=== PATIENT | male | born 1980 | race Caucasian/White ===

== ENCOUNTER 2017-04-18 05:56 | Day surgery (SDC) | payer BC ==
[~2017-04-18 05:56] MED LIST: Lactated Ringers 1,000 ML IV SCH; Lidocaine 1%/Sod Bicarbonate in NS 8.4% 1 ML Syringe IDERM PRN; Sodium Chloride 0.9% 10 ML Syringe FLUSH PRN
[2017-04-18] MEDS ORDERED: Ropivacaine 0.5% 5 MG/ML 30 ML SDV ONE (06:02)
[2017-04-18] MEDS ORDERED: EPINEPHrine 1 MG/ML SDV ONE (06:02)
[2017-04-18] MEDS ORDERED: Lidocaine 1% 2 ML ONE (06:39)
[2017-04-18] MEDS ORDERED: Midazolam 1 MG/ML 2 ML SDV ONE ×2 (06:40→06:44)
[2017-04-18] MEDS ORDERED: fentaNYL 100 MCG/2 ML SDV ONE ×2 (06:40→06:44)
[2017-04-18] MEDS ORDERED: Bupivacaine 0.25% 10 ML SDV ONE (06:42)
[2017-04-18] MEDS ORDERED: Rocuronium 50 MG/5 ML Vial ONE (06:44)
[2017-04-18] MEDS ORDERED: Ondansetron 4 MG/2 ML SDV ONE (06:44)
[2017-04-18] MEDS ORDERED: Propofol 200 MG/20 ML SDV ONE (06:44)
[2017-04-18] MEDS ORDERED: ceFAZolin 1 GM Vial ONE (06:45)
[2017-04-18] MEDS ORDERED: Lidocaine 1% 4 ML ONE (06:45)
--- NOTE | 2017-04-18 07:05 | PCM.PREANE ---
Preanesthetic Assessment - Procedure Proposed Procedure: Right SVA with RCR, SAD - Anesthesia/Transfusion/Family Hx Anesthesia History: Prior Anesthesia Without Reaction Family History of Anesthesia Reaction: No Transfusion History: No Prior Transfusion(s) Intubation History: Unknown - Review of Systems General: No Symptoms Pulmonary: No Symptoms Cardiovascular: No Symptoms Gastrointestinal: No Symptoms Neurological: No Symptoms Other: Reports: None - Physical Assessment NPO Status Date: 04/17/17 NPO Status Time: 22:00 O2 Sat by Pulse Oximetry: 96 Respiratory Rate: 20 Vital Signs: Last Vital Signs Temp 36.7 C 04/18/17 06:10 Pulse 73 04/18/17 06:10 Resp 20 04/18/17 06:40 BP 139/91 H 04/18/17 06:40 Pulse Ox 96 04/18/17 06:40 Height: 1.88 m Weight: 96.162 kg ASA Class: 2 Mental Status: Alert & Oriented x3 Airway Class: Mallampati = 3 Dentition: Reports: Normal Dentition Thyro-Mental Finger Breadths: 3 Mouth Opening Finger Breadths: 3 ROM/Head Extension: Full Lungs: Clear to Auscultation, Normal Respiratory Effort Cardiovascular: Regular Rate, Regular Rhythm - Lab Values: Laboratory Last Values MRSA (PCR) Negative 04/13/17 13:10 - Allergies Allergies/Adverse Reactions: Allergies Allergy/AdvReac Type Severity Reaction Status Date / Time No Known Allergies Allergy Verified 04/17/17 14:51 - Blood Blood Available: No Product(s) Available: None - Anesthesia Plan Pre-Op Medication Ordered: None - Acknowledgements Anesthesia Type Planned: General Anesthesia (OETT), Regional Block (right interscalene nerve blcok ) Pt an Appropriate Candidate for the Planned Anesthesia: Yes Alternatives and Risks of Anesthesia Discussed w Pt/Guardian: Yes Pt/Guardian Understands and Agrees with Anesthesia Plan: Yes PreAnesthesia Questionnaire - Past Health History Medical/Surgical History: Denies Medical/Surgical History Genitourinary History: Reports: Renal Calculus - SUBSTANCE USE Smoking Status *Q: Current Some Day Smoker Second Hand Smoke Exposure: No Recreational Drug Use History: No - HOME MEDS Home Medications: Home Meds Acetaminophen/HYDROcodone [[place] 325-5 MG] 1 - 2 tab PO Q6H PRN #40 tablet 04/18 [Rx] Cyclobenzaprine [Flexeril] 10 mg PO Q8H PRN #40 tab 04/18/17 [Rx] - CURRENT (IN HOUSE) MEDS Current Meds: Current Medications Lactated Ringer's (Ringers, Lactated) 1,000 mls @ 125 mls/hr IV ASDIRECTED YAZMIN Last Admin: 04/18/17 06:20 Dose: 125 mls/hr Lidocaine/Sodium Bicarbonate (Buffered Lidocaine 1% In Ns 8.4%) 0.25 ml IDERM ONETIME PRN PRN Reason: Prior to IV Start Last Admin: 04/18/17 06:20 Dose: 0.25 ml Sodium Chloride (Saline Flush) 10 ml FLUSH ASDIRECTED PRN PRN Reason: Keep Vein Open Discontinued Medications Bupivacaine HCl (Sensorcaine-Mpf 0.25%) Confirm Administered Dose 10 ml .ROUTE .STK-MED ONE Stop: 04/18/17 06:43 Cefazolin Sodium (Ancef) Confirm Administered Dose 2 gm .ROUTE .STK-MED ONE Stop: 04/18/17 06:46 Epinephrine HCl (Adrenalin) Confirm Administered Dose 1 mg .ROUTE .STK-MED ONE Stop: 04/18/17 06:03 Fentanyl (Sublimaze) Confirm Administered Dose 100 mcg .ROUTE .STK-MED ONE Stop: 04/18/17 06:41 Fentanyl (Sublimaze) Confirm Administered Dose 100 mcg .ROUTE .STK-MED ONE Stop: 04/18/17 06:45 Lidocaine HCl (Xylocaine-Mpf 1%) Confirm Administered Dose 2 mls @ as directed .ROUTE .STK-MED ONE Stop: 04/18/17 06:40 Lidocaine HCl (Xylocaine-Mpf 1%) Confirm Administered Dose 4 mls @ as directed .ROUTE .STK-MED ONE Stop: 04/18/17 06:46 Midazolam HCl (Versed 1 Mg/Ml) Confirm Administered Dose 2 mg .ROUTE .STK-MED ONE Stop: 04/18/17 06:41 Midazolam HCl (Versed 1 Mg/Ml) Confirm Administered Dose 2 mg .ROUTE .STK-MED ONE Stop: 04/18/17 06:45 Ondansetron HCl (Zofran) Confirm Administered Dose 4 mg .ROUTE .STK-MED ONE Stop: 04/18/17 06:45 Propofol (Diprivan 20 Ml) Confirm Administered Dose 200 mg .ROUTE .STK-MED ONE Stop: 04/18/17 06:45 Rocuronium [place] (Zemuron) Confirm Administered Dose 50 mg .ROUTE .[employer] ONE Stop: 04/18/17 06:45 Ropivacaine (Naropin 0.5%) Confirm Administered Dose 30 ml .ROUTE .[employer] ONE Stop: 04/18/17 06:03
[2017-04-18] MEDS ORDERED: Lactated Ringers 1,000 ML ONE (07:49)
[2017-04-18] MEDS ORDERED: EPINEPHrine 1 MG/ML 30 ML MDV ONE (08:45)
[2017-04-18] MEDS ORDERED: fentaNYL 100 MCG/2 ML SDV IVPUSH PRN (08:46)
--- NOTE | 2017-04-18 08:47 | PCM.POSTAN ---
POST ANESTHESIA ASSESSMENT - MENTAL STATUS Mental Status: Alert, Oriented - VITAL SIGNS Pulse Rate: 88 SaO2: 94 Resp Rate: 14 Blood Pressure: 124/81 Temperature: 36.9 C - RESPIRATORY Respiratory Status: Respiratory Rate WNL, Airway Patent, O2 Saturation Stable, Supplemental Oxygen - CARDIOVASCULAR CV Status: Pulse Rate WNL, Blood Pressure Stable - GASTROINTESTINAL GI Status: No Symptoms - PAIN Pain Score: 0 - POST OP HYDRATION Hydration Status: Adequate & Stable - OBSERVATIONS Free Text/Narrative:: no anesthesia complications noted
--- NOTE | 2017-04-18 10:20 | PCM.SN ---
- Free Text/Narrative Note: Right interscalene nerve block note Date: 04/12/2017 Start: 639 Time Out: 640 Stop: 650 Surgical Procedure: Right shoulder video arthroscopy with RCR, TYALER Diagnosis: Right rotator cuff tear Current Procedure: Right interscalene block under US guidance for postoperative pain control Patient chart reviewed, risk/benefits discussed with patient, consent obtained. Patient positioned supine, monitors/alarms on, oxygen placed via nasal cannula at 2 LPM. IV sedation administered: Versed 2mg IV Fentanyl 100 mcg IV Right shoulder prepped with chloraprep x1. Sterile drapes placed with aseptic technique. Under US guidance, right subclavian artery visualized along with the brachial plexus. Plexus followed cephalad up to C6 cricoid level, and area localized with 2mls of 1% lidocaine. 22gauge 2 inch stimiplex needle inserted under US and guided to brachial plexus C5-C6 trunks with 0.44mV with stimulation of biceps noted. Stimulation abolished at 0.2mVs. 1ml of Normal Saline injected with loss of stimulation up to 0.7mA. Incremental injection of 5mls with negative aspiration prior to each injection of 0.5% ropivacaine with 1:200,000 epinephrine. Total volume=30mls. Refer to nurses notes for vital signs. Eugenio Ma CRNA
[2017-04-18 11:08] VITALS: BP 122/83
--- NOTE | 2017-04-26 22:35 | PCM.OPNOTE ---
- General Post-Op/Procedure Note Date of Surgery/Procedure: 04/18/17 Operative Procedure(s): right shoulder video arthroscopy with rotator cuff repair subacromial decopmression and extensive debridement Pre Op Diagnosis: right shoulder rotator cuff tear with impingement Post-Op Diagnosis: Same Anesthesia Technique: General ET Tube, Regional Block Primary Surgeon: Jacobo Garcia Anesthesia Provider: Eugenio Ma Ropewalk Rope Maker: Didi Aqunio EBL in mLs: 5 Complications: None Condition: Good
--- NOTE | 2017-04-27 18:15 | OR ---
DATE OF OPERATION: 04/18/2017 SURGEON: Jacobo Garcia MD OPERATION PERFORMED: Right shoulder video arthroscopy with rotator cuff repair, subacromial decompression, and extensive debridement. PREOPERATIVE DIAGNOSIS: Right shoulder rotator cuff tear with impingement. POSTOPERATIVE DIAGNOSIS: Right shoulder rotator cuff tear with impingement. ANESTHESIA: General endotracheal intubation with regional interscalene block. ANESTHESIA PROVIDER: Eugenio Ma. COLD TYPE ARTIST: Didi Aquino PA-C ESTIMATED BLOOD LOSS: 5 mL. COMPLICATIONS: None. CONDITION: Stable. DESCRIPTION OF PROCEDURE: The patient was identified in the preop holding area where proper site was marked and identified by the surgeon. The patient was taken back to the operating theater where, after adequate anesthesia, the patient was placed in the lazy left lateral decubitus position. A wedge was placed posteriorly. All bony prominences were well padded. The patient's right upper extremity was then sterilely prepped and draped in the usual sterile fashion. OR time-out was performed. The patient received 2 g of IV Ancef. At this time, 15 pounds of traction was applied to the right upper extremity. At this time, posterior incision was made. Scope and trocar were introduced to the glenohumeral joint. The patient then had an anterior portal created with the use of a spinal needle. Cursory examination showed the biceps tendon was intact. There were no signs of chondromalacia. There was noted to be a small high-grade partial-thickness tear to the anterior portion of the supraspinatus. The rest of the undersurface of the footprint was intact. The bare area showed no signs of defect. There were no loose or foreign bodies. The subscapularis tendon was intact. At this time, the scope was removed and placed in the subacromial space both with anterior and posterior portals. At this time, the patient was noted to have a large amount of bursa. At this time, using the 2 portals, a significant synovectomy and debridement was done with significant synovitis. An extensive debridement was done at this time. Once I was able to see, I was able to fashion a lateral portal, and at this time, the tear on the anterior portion of the supraspinatus was identified. A good bony bleeding bed was then created using a 4-0 full- radius resector. With the use of a spinal needle, a 4.75 mm Arthrex SwiveLock anchor was placed medially. Two limbs of FiberTape and two limbs of FiberWire were then passed through the supraspinatus. The 2 limbs of FiberWire were then tied, and all 4 limbs were then brought out laterally, and another tap was used out laterally for a 4.75 SwiveLock anchor. The suture limbs from the previous medial row were then placed, and tension was applied, and the other anchor was placed out laterally for a watertight double-row repair. At this time, the patient was noted to have a type 3 acromion. The undersurface of the acromion and CA ligament were released. An extensive debridement was done. At this time, an acromioplasty was done to the undersurface of the acromion back to a type 1 border that was smoothed with the posterior portion of the acromion. At this time, he was found to have adequate zoroastrianism of a type 1 acromion. Excess saline was then drained from the shoulder. A 3-0 nylon simple suture was used for closure of the skin. The patient was placed in a sterile soft dressing and a pillow sling and sent to the PACU in stable condition. MMODAL /[id number]
== END 2017-04-18 11:00 | disposition home or self-care (01) ==
LOC: JD.SDS 05:56
PROVIDERS: ATTEND Orthopaedic Surgery
DX: M75.101 Unspecified rotator cuff tear or rupture of right shoulder, not specified as traumatic (principal); M25.811 Other specified joint disorders, right shoulder; F17.210 Nicotine dependence, cigarettes, uncomplicated
CPT/HCPCS: 29826; 29827; 64415; 87641; J0171; J0690; J2250; J2405; J2795; J3010; J7120; 01610; J2704

== ENCOUNTER 2019-09-18 21:04 | Emergency (ER) | payer OTHER, BC ==
[2019-09-18 21:18] VITALS: BP 130/88; PULSE 97
[2019-09-18] MEDS ORDERED: predniSONE 20 MG Tab PO ONE (21:25)
[2019-09-18] MEDS ORDERED: HYDROmorphone 1 MG/ML Syringe IM ONE (21:27)
[2019-09-18] MEDS ORDERED: Promethazine 25 MG/ML SDV IM ONE (21:28)
--- NOTE | 2019-09-18 21:30 | EDM.PDOC ---
ED HPI GENERAL MEDICAL PROBLEM - General Chief Complaint: Back Pain or Injury Stated Complaint: BACK PAIN Time Seen by Provider: 09/18/19 21:25 Source of Information: Reports: Patient History Limitations: Reports: No Limitations - History of Present Illness INITIAL COMMENTS - FREE TEXT/NARRATIVE: 38-year-old male presents to the ED with acute low back strain. He states he was reading on an object that was buried with in the ground and he developed sudden onset of severe low back pain primarily across his lower back that put him to the ground. This occurred about 1300 hrs. today. Since that time he has taken 400 mg of Motrin with no relief. He did see the chiropractor who did a minor adjustments of his lower back without any relief. He has not had a history of any low back problems. At present he is walking extremely slowly and found it very difficult to get in the vehicle to drive to the hospital. Current job involves some bending over but very little lifting pushing or pulling. He denies any pain radiating down into the buttocks or legs. Denies any trouble with bowel or bladder function. Onset: Today, Sudden Onset Date: 09/18/19 Onset Time: 13:00 Duration: Hour(s):, Getting Worse Location: Reports: Back (Diffuse low back pain perhaps worse on the right side as compared to the left.) Quality: Reports: Ache, Sharp (Pain is sharp and stabbing with certain movements.), Stabbing Severity: Severe (8 out of 10) Improves with: Reports: Rest Worsens with: Reports: Other (Movement) Context: Reports: Activity (Was pulling on an object that is buried within the ground when he developed sudden onset of severe low back pain that put him to the ground.). 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 (Under milligrams of Motrin.) Lower Back Pain Score (Numeric/FACES): 10 - Related Data Allergies Allergy/AdvReac Type Severity Reaction Status Date / Time No Known Allergies Allergy Verified 09/18/19 21:18 Home Meds: Home Meds Diclofenac Sodium [Voltaren] 75 mg PO BIDMEALS #16 tab.cr 09/18/19 [Rx] predniSONE [Prednisone] 20 mg PO ASDIRECTED #15 tablet 09/18/19 [Rx] Past Medical History - Past Health History Medical/Surgical History: Denies Medical/Surgical History Genitourinary History: Reports: Renal Calculus Social & Family History - Family History Family Medical History: Noncontributory Cardiac: Reports: [place] - Tobacco Use Smoking Status *Q: Current Every Day Smoker Years of Tobacco use: 10 Packs/Tins Daily: 0.5 - Caffeine Use Caffeine Use: Reports: Soda - Recreational Drug Use Recreational Drug Use: No - Living Situation & Occupation Living situation: Reports: Single, with Family Occupation: Employed ED ROS GENERAL - Review of Systems Review Of Systems: See Below Constitutional: Reports: Decreased Appetite. Denies: Fever, Chills, Malaise, Weight Loss HEENT: Reports: No Symptoms Respiratory: Reports: No Symptoms Cardiovascular: Reports: No Symptoms Endocrine: Reports: No Symptoms GI/Abdominal: Reports: No Symptoms : Reports: No Symptoms Musculoskeletal: Reports: Back Pain Skin: Reports: No Symptoms (History of present illness) Neurological: Reports: No Symptoms Psychiatric: Reports: No Symptoms Hematologic/Lymphatic: Reports: No Symptoms ED EXAM,LOWER BACK PAIN/INJURY - Physical Exam Exam: See Below Exam Limited By: No Limitations General Appearance: Alert, WD/WN, Moderate Distress, Other (Get off the gurney on his own volition. Temperature is 37.2 heart rate 97 and sinus respiratory of 18 with sats of 97% on room air BP 130/88.) Eye Exam: Bilateral Eye: Normal Inspection, PERRL Back Exam: Muscle Spasm (And has significant paraspinal muscle spasm on the right side from thoracic 6 to lumbar 5 vertebra.), Vertebral Tenderness (Point of maximal tenderness is at the L3-L4 facet joint on the right side.), Other ( There is no muscle spasm on the left side.) Extremities: Normal Inspection, Normal Range of Motion, Non-Tender, No Pedal Edema ( Pain on either SI joint on palpation.) Neurological: Alert, Normal Mood/Affect, Normal Dorsiflexion, CN II-XII Intact, Normal Plantar Flexion. No: Normal Gait (Walking very gingerly slightly bent over.) Psychiatric: Normal Affect, Normal Mood Skin Exam: Warm, Dry, Intact, Normal Color, No Rash Course - Vital Signs Last Recorded V/S: Last Vital Signs Temp 37.2 C 09/18/19 21:14 Pulse 97 09/18/19 21:14 Resp 18 09/18/19 21:14 BP 130/88 09/18/19 21:14 Pulse Ox 97 09/18/19 21:14 - Radiology Interpretation Free Text/Narrative:: 38-year-old male presents the ED with acute low back strain. This occurred while he was reading on an object that was buried within the ground. He felt sudden onset of severe pain in his lower back that dropped into his knees. Since that time the pain is gradually increased across his lower back but not down his legs or buttocks. Point of maximal tenderness appears to be the L3-L4 facet joint on the right side. Plan IM injection of Dilaudid 1 mg with Phenergan 25 mg IM for acute pain relief. This will provide some degree of sedation as well. I will place him on Voltaren 75 mg twice daily for the next 8 days to relieve pain and inflammation. Prednisone 20 mg twice daily morning and supper for 5 days then once in the morning only for another 5 days to relieve inflammation. Pain medication will be [place] 2 tablets every 3-4 hours as necessary for pain relief. Departure - Departure Time of Disposition: 21:35 Disposition: Home, Self-Care 01 Condition: Fair Clinical Impression: Lumbar spine strain Qualifiers: Encounter type: initial encounter Qualified Code(s): S39.012A - Strain of muscle, fascia and tendon of lower back, initial encounter - Discharge Information *PRESCRIPTION DRUG MONITORING PROGRAM REVIEWED*: Not Applicable *COPY OF PRESCRIPTION DRUG MONITORING REPORT IN PATIENT LEANNE: Not Applicable Prescriptions: predniSONE [Prednisone] 20 mg PO ASDIRECTED #15 tablet Diclofenac Sodium [Voltaren] 75 mg PO BIDMEALS #16 tab.cr Instructions: Low Back Sprain or Strain Rehab-SportsMed Referrals: PCP,None [Primary Care Provider] - Forms: ED Department Discharge, ED Return to Work/School Form Additional Instructions: Evaluation in the emergency room today in regards to acute low back strain. Examination reveals marked paraspinal muscle spasm on the right side from mid back all the way down to Roy's tailbone. Point of maximal tenderness is over the lumbar 3 lumbar 4 facet joint in your lower back. Think of this as a sprained ankle with fluid within the joint pushing it apart causing the muscle to go into spasm over top to ask his mother natures splint. On average it will take about 7 to 10 days for your back pain to settle down completely. Activity as tolerated. Suggest treatment with prednisone 20 mg twice daily with papo kfast and supper for 5 days and then once in the morning only for another 5 days. Voltaren 75 mg twice daily for the next 8 days with food. Cowgill tabss 2 every 4hrs as need for pain relief over the next 2-3 days. This is until the anti-inflammatories become effective at relieving most of your pain. Sepsis Event Note (ED) - Evaluation Sepsis Screening Result: No Definite Risk - Focused Exam Vital Signs: Vital Signs Temp Pulse Resp BP Pulse Ox 09/18/19 21:14 37.2 C 97 18 130/88 97
== END 2019-09-18 21:57 | disposition home or self-care (01) ==
LOC: JD.ED 21:04
DX: S39.012A Strain of muscle, fascia and tendon of lower back, initial encounter (principal); F17.210 Nicotine dependence, cigarettes, uncomplicated; X58.XXXA Exposure to other specified factors, initial encounter
CPT/HCPCS: 96372; 99283; J1170; J2550; J7512

== ENCOUNTER 2019-12-02 15:03 | Emergency (ER) | payer BC ==
[2019-12-02] MEDS ORDERED: Sodium Chloride 0.9% 10 ML Syringe FLUSH PRN (15:13)
[2019-12-02] MEDS ORDERED: HYDROmorphone 0.5 MG/0.5 ML Syringe IVPUSH ONE (15:25)
[2019-12-02] MEDS ORDERED: Ondansetron 4 MG/2 ML SDV IVPUSH ONE (15:25)
[2019-12-02] MEDS ORDERED: Ketorolac 30 MG/ML SDV IVPUSH ONE (15:25)
[2019-12-02] MEDS ORDERED: Sodium Chloride 0.9% 1,000 ML IV STA (15:25)
--- NOTE | 2019-12-02 15:30 | EDM.PDOC ---
ED HPI GENERAL MEDICAL PROBLEM - General Chief Complaint: Flank Pain Stated Complaint: LEFT SIDE BACK PAIN Time Seen by Provider: 12/02/19 15:06 Source of Information: Reports: Patient, RN Notes Reviewed History Limitations: Reports: No Limitations - History of Present Illness INITIAL COMMENTS - FREE TEXT/NARRATIVE: Patient is a 39-year-old male presenting to the emergency department with complaints of acute onset of left-sided flank pain. He states he was just sitting in a chair when it occurred. He has not been doing any strenuous activities or lifting. He describes it as sharp and constant nature. He does have a history of kidney stones and states this feels similar to his previous episodes. At the time the pain occurred, he did have 2 episodes of vomiting and continues to feel nauseous at this time. He states that he took some ibuprofen a few hours ago with little relief. Pain does not radiate. Denies any visible blood in his urine. Denies any fever or chills. 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 [No Known Home Meds] 12/02/19 [History] Past Medical History - Past Health History Medical/Surgical History: Denies Medical/Surgical History Genitourinary History: Reports: Renal Calculus - Past Surgical History Musculoskeletal Surgical History: Reports: Shoulder Surgery Social & Family History - Family History Family Medical History: Noncontributory Cardiac: Reports: ME - Tobacco Use Tobacco Use Status *Q: Never Tobacco User - Caffeine Use Caffeine Use: Reports: Soda - Recreational Drug Use Recreational Drug Use: No - Living Situation & Occupation Living situation: Reports: Single, with Family Occupation: Employed ED ROS GENERAL - Review of Systems Review Of Systems: See Below Constitutional: Reports: No Symptoms. Denies: Fever, Chills, Weakness HEENT: Reports: No Symptoms Respiratory: Reports: No Symptoms Cardiovascular: Reports: No Symptoms Endocrine: Reports: No Symptoms GI/Abdominal: Reports: Nausea, Vomiting. Denies: Abdominal Pain, Diarrhea : Reports: Flank Pain. Denies: Dysuria, Hematuria Musculoskeletal: Reports: No Symptoms Skin: Reports: No Symptoms Neurological: Reports: No Symptoms Psychiatric: Reports: No Symptoms Hematologic/Lymphatic: Reports: No Symptoms Immunologic: Reports: No Symptoms ED EXAM, RENAL/ - Physical Exam Exam: See Below General Appearance: Alert, WD/WN, Mild Distress Respiratory/Chest: No Respiratory Distress, Lungs Clear, Normal Breath Sounds, No Accessory Muscle Use, Chest Non-Tender Cardiovascular: Normal Peripheral Pulses, Regular Rate, Rhythm, No Edema, No Gallop, No JVD, No Murmur, No Rub GI/Abdominal: Normal Bowel Sounds, Soft, Non-Tender, No Organomegaly, No Distention, No Abnormal Bruit, No Mass Back Exam: Normal Inspection, Full Range of Motion, CVA Tenderness (L). No: CVA Tenderness (R) Neurological: Alert, Oriented, CN II-XII Intact, Normal Cognition, Normal Gait, Normal Reflexes, No Motor/Sensory Deficits Psychiatric: Normal Affect, Normal Mood Skin Exam: Warm, Dry, Intact, Normal Color, No Rash Course - Vital Signs Last Recorded V/S: Last Vital Signs Temp 97.3 F 12/02/19 16:40 Pulse 94 12/02/19 16:40 Resp 16 12/02/19 16:40 BP 130/72 12/02/19 16:40 Pulse Ox 95 12/02/19 16:40 - Orders/Labs/Meds Labs: Laboratory Tests 12/02/19 12/02/19 12/02/19 Range/Units 15:20 15:30 15:30 WBC 7.39 (4.23-9.07) K/mm3 RBC 5.98 (4.63-6.08) M/mm3 Hgb 17.5 (13.7-17.5) gm/dl Hct 52.9 H (40.1-51.0) % MCV 88.5 (79.0-92.2) fl MCH 29.3 (25.7-32.2) pg MCHC 33.1 (32.2-35.5) g/dl RDW Std Deviation 46.3 H (35.1-43.9) fL Plt Count 271 (163-337) K/mm3 MPV 10.1 (9.4-12.3) fl Neut % (Auto) 59.5 (34.0-67.9) % Lymph % (Auto) 27.1 (21.8-53.1) % Bailey % (Auto) 9.3 (5.3-12.2) % Eos % (Auto) 3.2 (0.8-7.0) Baso % (Auto) 0.8 (0.1-1.2) % Neut # (Auto) 4.39 (1.78-5.38) K/mm3 Lymph # (Auto) 2.00 (1.32-3.57) K/mm3 Bailey # (Auto) 0.69 (0.30-0.82) K/mm3 Eos # (Auto) 0.24 (0.04-0.54) K/mm3 Baso # (Auto) 0.06 (0.01-0.08) K/mm3 Sodium 140 (136-145) mEq/L Potassium 3.9 (3.5-5.1) mEq/L Chloride 104 (98-107) mEq/L Carbon Dioxide 25 (21-32) mEq/L Anion Gap 14.9 (5-15) BUN 7 (7-18) mg/dL Creatinine 1.0 (0.7-1.3) mg/dL Est Cr Clr Drug Dosing 117.36 mL/min Estimated GFR (MDRD) > 60 (>60) mL/min BUN/Creatinine Ratio 7.0 L (14-18) Glucose 115 H (74-106) mg/dL Calcium 9.1 (8.5-10.1) mg/dL Total Bilirubin 0.4 (0.2-1.0) mg/dL AST 17 (15-37) U/L ALT 45 (16-63) U/L Alkaline Phosphatase 81 (46-116) U/L C-Reactive Protein 0.4 (<1.0) mg/dL Total Protein 7.8 (6.4-8.2) g/dl Albumin 4.1 (3.4-5.0) g/dl Globulin 3.7 gm/dL Albumin/Globulin Ratio 1.1 (1-2) Urine Color Yellow (Yellow) Urine Appearance Clear (Clear) Urine pH 7.5 (5.0-8.0) Ur Specific [place] 1.025 (1.005-1.030) Urine Protein Trace H (Negative) Urine Glucose (UA) Negative (Negative) Urine Ketones Negative (Negative) Urine Occult Blood 1+ H (Negative) Urine Nitrite Negative (Negative) Urine Bilirubin Negative (Negative) Urine Urobilinogen 1.0 (0.2-1.0) Ur Leukocyte Esterase Negative (Negative) Urine RBC 5-10 H (0-5) /hpf Urine WBC 0-5 (0-5) /hpf Ur Squamous Epith Cells 0-5 (0-5) /hpf Urine Bacteria Few (FEW) /hpf Urine Mucus Few (FEW) /hpf Meds: Medications Discontinued Medications Generic Name Dose Route Start Last Admin Trade Name Freq PRN Reason Stop Dose Admin Hydromorphone HCl 0.5 mg 12/02/19 15:25 12/02/19 15:44 Dilaudid IVPUSH 12/02/19 15:26 0.5 mg ONETIME ONE Administration Sodium Chloride 1,000 mls @ 999 mls/hr 12/02/19 15:25 12/02/19 15:46 Normal Saline IV 12/02/19 16:25 999 mls/hr NOW STA Administration Ketorolac Tromethamine 30 mg 12/02/19 15:25 12/02/19 15:42 Toradol IVPUSH 12/02/19 15:26 30 mg ONETIME ONE Administration Ondansetron HCl 4 mg 12/02/19 15:25 12/02/19 15:40 Zofran IVPUSH 12/02/19 15:26 4 mg ONETIME ONE Administration Sodium Chloride 10 ml 12/02/19 15:13 12/02/19 15:35 Saline Flush FLUSH 10 ml ASDIRECTED PRN Administration Keep Vein Open - Re-Assessments/Exams Free Text/Narrative Re-Assessment/Exam: Patient's pain has resolved. CT scan shows a 4 mm stone that has already dropped into the bladder. Hematology is grossly unremarkable. Urinalysis showed 1+ occult blood and 5-10 RBCs. we will send him home with a urine strainer. Discharge instructions as documented. Departure - Departure Time of Disposition: 16:25 Disposition: Home, Self-Care 01 Condition: Good Clinical Impression: Kidney stone - Discharge Information Instructions: Kidney Stones, [id number] Referrals: PCP,None [Primary Care Provider] - Forms: ED Department Discharge Additional Instructions: You were seen in the emergency department today for acute left-sided flank pain. Work-up included blood work, urinalysis, and a CT scan of your abdomen pelvis. Results of your work-up are consistent with a left-sided kidney stone. By the time the CT scan had been completed, you already passed the stone into your bladder. Pain symptoms had resolved by the time of reassessment. You have been sent home with a urine strainer. Recommend you strain your urine until you pass the stone. If you continue to have some discomfort, you can use Tylenol or ibuprofen, however the pain generally resolves once it is clear the ureter. You experience any new or worsening symptoms, please not hesitate to return to the emergency department. Sepsis Event Note (ED) - Evaluation Sepsis Screening Result: No Definite Risk
[2019-12-02 18:40] VITALS: BP 130/72; PULSE 94
--- NOTE | 2019-12-04 15:23 | CT ---
"PROCEDURE INFORMATION: Exam: CT Abdomen And Pelvis Without Contrast Exam date and time: 12/02/2019 3:41 PM Age: 39 years old Clinical indication: Abdominal pain; Flank; Left TECHNIQUE: Imaging protocol: Computed tomography of the abdomen and pelvis without contrast. COMPARISON: No relevant prior studies available. FINDINGS: Lungs: There is subpleural atelectasis of the dependent portions of the lungs. Heart: The heart is not enlarged. Liver: The liver is normal. There is a small calcification in the medial aspect of the posterior segment of the right lobe of the liver near the kidney. This measures about 4 mm in diameter and may represent old granulomatous change. Gallbladder and bile ducts: The gallbladder is normal. Pancreas: The pancreas is normal. Spleen: The spleen is normal. Adrenal glands: Normal. No mass. Kidneys and ureters: There are numerous calyceal calcifications in the left kidney measuring up to about 9.7 mm in diameter. There are a few calyceal calcifications in the right kidney. There is no hydronephrosis. There is mild distention of the left ureter to the ureterovesical junction. Stomach and bowel: The stomach is normal. No over distention of bowel loops is seen. The stomach is normal. Appendix: A normal appendix is identified. Intraperitoneal space: No evidence of intraperitoneal free air. Vasculature: The aorta is normal. Lymph nodes: No pathologic lymph node enlargement is demonstrated. MARTÍNEZ GUAJADRONT | Final Radiology Report CONFIDENTIALITY STATEMENT This report is intended only for use by the referring physician, and only in accordance with law. If you received this in error, call [phone]. Page 2 of 2 Urinary bladder: There is a 4 mm calcification within the lumen of the bladder near the left ureterovesical junction. Reproductive: The prostate demonstrates mild nonspecific enlargement. The seminal vesicles are normal. Bones/joints: Unremarkable. No acute fracture. Soft tissues: Unremarkable. IMPRESSION: Bladder calculus probably representing a recently passed left ureteral stone. Thank you for allowing us to participate in the care of your patient. Dictated and Authenticated by: Aman Novoa MD 12/02/2019 5:09 PM Central Time ([place] & [place]) [facility]"
== END 2019-12-02 16:40 | disposition home or self-care (01) ==
LOC: JD.ED 15:03
DX: N20.2 Calculus of kidney with calculus of ureter (principal)
CPT/HCPCS: 36415; 74176; 80053; 81001; 85025; 86140; 96374; 96375; 99284; J1170; J1885; J2405; J7030

== ENCOUNTER 2021-01-25 21:45 | Emergency (ER) | payer BC ==
[2021-01-25 21:59] VITALS: BP 148/86; PULSE 91
--- NOTE | 2021-01-25 22:43 | EDM.PDOC ---
ED HPI GENERAL MEDICAL PROBLEM - General Chief Complaint: Abdominal Pain Stated Complaint: RT SIDE PAIN Time Seen by Provider: 01/25/21 22:17 Source of Information: Reports: Patient History Limitations: Reports: No Limitations - History of Present Illness INITIAL COMMENTS - FREE TEXT/NARRATIVE: Mr. Chowdhury is a pleasant 40-year-old gentleman who now presents the ED stating that he developed right flank pain radiating to his right lower quadrant around noon today. He describes the pain as a pressure sensation, but states that it comes and goes, typically lasting 15 to 20 minutes, then recurring every 1-2 hours. When present, he has not identified any modifiers. No associated fever, nausea, vomiting, or urinary symptoms. He states that his symptoms are similar to prior kidney stones, which he has had countless times in the past. At triage, the patient's initial BP was found to be mildly elevated at 148/86, otherwise, he is hemodynamically stable, afebrile, saturating 96% on room air. He appears to be perfectly comfortable, in no acute distress. He states that at present, he is completely symptom-free. Prior to noon today, the patient denies having a recent fever, chills, sore throat, ear pain, nasal or sinus congestion, cough, dyspnea, chest pain, palpitations, nausea, vomiting, constipation, diarrhea, abdominal pain, urinary symptoms, recent weight gain or weight loss, recent bloody bowel movements or black bowel movements, recent joint aches, headaches, or rashes. The patient does not have a PCP. He has not received a COVID vaccination, nor an influenza vaccination this season. Right Abdomen Pain Score (Numeric/FACES): 9 - Related Data Allergies Allergy/AdvReac Type Severity Reaction Status Date / Time No Known Allergies Allergy Verified 01/25/21 21:59 Home Meds: Home Meds Hydrocodone/Acetaminophen [HYDROcodone-Acetaminophen 5-325 MG] 1 - 2 tab PO Q6H PRN #20 tab 01/26/21 [Rx] Ondansetron [Zofran ODT] 1 tab PO Q8H PRN #14 tab.dis 01/26/21 [Rx] Tamsulosin [Flomax] 1 cap PO QAM PRN #10 cap.er 01/26/21 [Rx] Past Medical History Genitourinary History: Reports: Renal Calculus - Past Surgical History Musculoskeletal Surgical History: Reports: Shoulder Surgery (right, arthroscopic) Social & Family History - Tobacco Use Tobacco Use Status *Q: Current Every Day Tobacco User Years of Tobacco use: 15 Packs/Tins Daily: 0.5 Packs/Tins Daily Comment: Down from 1 ppd - Caffeine Use Caffeine Use: Reports: Energy Drinks, Soda - Alcohol Use Alcohol Use History: No - Recreational Drug Use Recreational Drug Use: No - Living Situation & Occupation Living situation: Reports: Single, Other (With a friend) Occupation: Employed ([email or web address]) ED ROS GENERAL - Review of Systems Review Of Systems: Comprehensive ROS is negative, except as noted in HPI. ED EXAM, RENAL/ - Physical Exam Exam: See Below Exam Limited By: No Limitations General Appearance: Alert, WD/WN, No Apparent Distress Eye Exam: Bilateral Eye: EOMI, Normal Inspection Ears: Normal External Exam, Hearing Grossly Normal Nose: Normal Inspection Throat/Mouth: Normal Inspection, Normal Lips, Normal Voice, No Airway Compromise Head: Atraumatic, Normocephalic Neck: Normal Inspection, Full Range of Motion Respiratory/Chest: No Respiratory Distress, Lungs Clear, Normal Breath Sounds, No Accessory Muscle Use Cardiovascular: Normal Peripheral Pulses, Regular Rate, Rhythm, No Edema, No Gallop, No JVD, No Murmur, No Rub GI/Abdominal: Normal Bowel Sounds, Soft, Non-Tender (including deep palpation of the RLQ), No Organomegaly, No Distention, No Abnormal Bruit, No Mass Back Exam: Normal Inspection, Full Range of Motion. No: CVA Tenderness (L), CVA Tenderness (R) Extremities: Normal Inspection, Normal Range of Motion, No Pedal Edema, Normal Capillary Refill Neurological: Alert, Oriented, Normal Cognition, No Motor/Sensory Deficits Psychiatric: Normal Affect Skin Exam: Warm, Dry, Intact, Normal Color, No Rash Course - Vital Signs Last Recorded V/S: Last Vital Signs Temp 36.6 C 01/25/21 21:56 Pulse 91 01/25/21 21:56 Resp 16 01/25/21 21:56 BP 148/86 H 01/25/21 21:56 Pulse Ox 96 01/25/21 21:56 - Orders/Labs/Meds Orders: Active Orders 24 hr Category Date Time Status Strain Urine [RC] ASDIRECTED Care 01/25/21 22:37 Active Abdomen Pelvis wo Cont [CT] Stat Exams 01/25/21 22:36 Taken Sodium Chloride 0.9% [Normal Saline] 1,000 ml Med 01/25/21 22:45 Active IV ASDIRECTED Tamsulosin [Flomax] Med 01/26/21 00:28 Once 0.4 mg PO ONETIME ONE Medication Orders Sodium Chloride (Normal Saline) 1,000 mls @ 250 mls/hr IV ASDIRECTED [facility] Last Admin: 01/25/21 22:53 Dose: 250 mls/hr Documented by: STEPHANIE Labs: Laboratory Tests 01/25/21 Range/Units 23:28 Urine Color Yellow (Yellow) Urine Appearance Clear (Clear) Urine pH 8.5 H (5.0-8.0) Ur Specific [place] 1.015 (1.005-1.030) Urine Protein Trace H (Negative) Urine Glucose (UA) Negative (Negative) Urine Ketones Negative (Negative) Urine Occult Blood Trace-intact H (Negative) Urine Nitrite Negative (Negative) Urine Bilirubin Negative (Negative) Urine Urobilinogen 0.2 (0.2-1.0) Ur Leukocyte Esterase Negative (Negative) Urine RBC 10-20 H (0-5) /hpf Urine WBC Not seen (0-5) /hpf Ur Squamous Epith Cells 0-5 (0-5) /hpf Urine Bacteria Rare (FEW) /hpf Urine Mucus Few (FEW) /hpf Meds: Medications Generic Name Dose Route Start Last Admin Trade Name Gumaroq PRN Reason Stop Dose Admin Sodium Chloride 1,000 mls @ 250 mls/hr 01/25/21 22:45 01/25/21 22:53 Normal Saline IV 250 mls/hr ASDIRECTED [facility] Administration - Re-Assessments/Exams Free Text/Narrative Re-Assessment/Exam: 01/25/21 22:45 I ordered a urinalysis with urine strainer, and a CT of the abdomen and pelvis without contrast, to evaluate for a stone. In the meantime, the patient will be given some IV fluid. Because he is currently asymptomatic, he requested no pain medication. 01/25/21 23:54 The patient's urinalysis is unremarkable. 01/26/21 00:18 CT of the abdomen and pelvis without contrast is read by [facility] as "Mild right- sided obstructive uropathy." The body of the report reads "Mild right hydroureteronephrosis secondary to 4 mm calculus distal 3rd of the ureter. Additional multiple calculi in both kidneys. Largest lower pole left kidney measures up to 9 mm." 01/26/21 00:29 Test results discussed with the patient. At 4 mm, the patient will likely pass the stone on his own. I will discharge him home with prescriptions for [place], Zofran, and tamsulosin. He is to stay adequately hydrated and strain all of his urine. I will give him a referral to Dr. Mcdonald in the event that he does not pass the stone within a couple of weeks. Departure - Departure Time of Disposition: 00:29 Disposition: Home, Self-Care 01 Condition: Good Clinical Impression: Ureterolithiasis - Discharge Information *PRESCRIPTION DRUG MONITORING PROGRAM REVIEWED*: Not Applicable *COPY OF PRESCRIPTION DRUG MONITORING REPORT IN PATIENT LEANNE: Not Applicable Prescriptions: Tamsulosin [Flomax] 1 cap PO QAM PRN #10 cap.er PRN Reason: Pain Hydrocodone/Acetaminophen [HYDROcodone-Acetaminophen 5-325 MG] 1 - 2 tab PO Q6H PRN #20 tab PRN Reason: Pain (Severe 7-10) Ondansetron [Zofran ODT] 1 tab PO Q8H PRN #14 tab.dis PRN Reason: Nausea/Vomiting Referrals: PCP,None [Primary Care Provider] - Yeyo Mcdonald MD [Ordering Only Provider] - Forms: ED Department Discharge Additional Instructions: You were seen in the emergency room after developing right flank pain that radiated to your lower right abdomen. Work-up in the ER included a urinalysis and a CT of your abdomen and pelvis. The urinalysis was unremarkable. No sign of a urinary tract infection. The CT scan found a 4 mm stone in the distal third of the right ureter. This is the cause of your symptoms. We recommend you stay adequately hydrated and strain all of your urine. If you capture the stone, you can take it to a doctor for analysis. It does not really matter what type of fluid you drink. We recommend you take [id number] ibuprofen, 3 tablets (600 mg) up to every 8 hours, with food, as needed for discomfort. You may take 1 to 2 tablets of the opioid pain reliever [place] up to every 6 hours, as needed for pain not relieved by ibuprofen. If you take [place], do not drive or operate heavy machinery for 12 hours afterwards. Templeton may cause constipation, so consider taking a stool softener. Take 1 tablet of the antispasm medicine tamsulosin every morning, starting tomorrow morning, , 01/27/2021, as needed for pain. You may dissolve 1 tablet of the anti-nausea medicine Zofran ODT on your tongue up to every 8 hours, as needed for nausea/vomiting. If you fail to pass the stone within a couple of weeks, please follow-up with the Urologist Dr. Yeyo Mcdonald, in [place]. If any other problems, please do not hesitate to return to the ER. Sepsis Event Note (ED) - Evaluation Sepsis Screening Result: No Definite Risk - Focused Exam Vital Signs: Vital Signs Temp Pulse Resp BP Pulse Ox 01/25/21 21:56 36.6 C 91 16 148/86 H 96 - My Orders Last 24 Hours: My Active Orders 01/25/21 22:36 Abdomen Pelvis wo Cont [CT] Stat 01/25/21 22:37 Strain Urine [RC] ASDIRECTED 01/25/21 22:45 Sodium Chloride 0.9% [Normal Saline] 1,000 ml IV ASDIRECTED 01/26/21 00:28 Tamsulosin [Flomax] 0.4 mg PO ONETIME ONE - Assessment/Plan Last 24 Hours: My Active Orders 01/25/21 22:36 Abdomen Pelvis wo Cont [CT] Stat 01/25/21 22:37 Strain Urine [RC] ASDIRECTED 01/25/21 22:45 Sodium Chloride 0.9% [Normal Saline] 1,000 ml IV ASDIRECTED 01/26/21 00:28 Tamsulosin [Flomax] 0.4 mg PO ONETIME ONE
[2021-01-25] MEDS ORDERED: Sodium Chloride 0.9% 1,000 ML IV SCH (22:45)
[2021-01-26] MEDS ORDERED: Tamsulosin 0.4 MG Cap.ER PO ONE (00:28)
--- NOTE | 2021-01-26 07:35 | CT ---
CT abdomen and pelvis Technique: Multiple axial sections were obtained from above the dome of the diaphragm inferiorly through the pubic symphysis. Intravenous and oral contrast were not utilized. Study has been performed as a ureteral stone protocol. Comparison: Prior CT abdomen and pelvis exam of 04/04/12. Findings: Dilated right renal pelvis and right ureter are seen. There is an obstructing calculus being seen within the mid to distal right ureter which measures 5 mm. This stone is located approximately 4 cm from the UVJ. Numerous nonobstructing calculi are noted within both kidneys. No additional ureteral stone is seen. Lung window setting shows a small 2 mm nodule within the right middle lobe. This nodule is most likely incidental. Noncontrast appearance of the liver shows no focal abnormality. Gallbladder contains no calcified gallstones. Spleen size is normal. Adrenal glands show no nodule. Pancreas appears within normal limits. Abdominal aorta shows no aneurysm. No retroperitoneal adenopathy or mesenteric abnormalities are seen. No pelvic mass or adenopathy is seen. Appendix is seen which is normal in size. Bone window settings were reviewed which show minimal scattered disc space narrowing within the lower thoracic spine as well as posterior disc space narrowing at L5-S1. No acute osseous abnormality is appreciated. Impression: 1. 5 mm obstructing calculus within the mid to distal right ureter which occurs approximately 4 cm from the UVJ. This calculus causes proximal hydronephrosis. 2. Multiple nonobstructing calculi are seen within both kidneys. 3. Lungs show a 2 mm nodule within the right middle lobe. This is not definitely appreciated on previous studies but is likely incidental. 4. Other findings believed to be chronic as noted above. 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
== END 2021-01-26 00:50 | disposition home or self-care (01) ==
LOC: JD.ED 21:45
DX: N20.1 Calculus of ureter (principal); Z72.0 Tobacco use; Z79.899 Other long term (current) drug therapy
CPT/HCPCS: 74176; 81001; 99284; J7030

== ENCOUNTER 2021-01-26 11:46 | Emergency (ER) | payer BC ==
[2021-01-26 11:55] VITALS: BP 135/101; PULSE 85
[2021-01-26] MEDS ORDERED: Ketorolac 15 MG/ML SDV IM ONE (12:16)
[2021-01-26] MEDS ORDERED: Acetaminophen/oxyCODONE 325-5 MG Tab PO ONE (12:17)
[2021-01-26] MEDS ORDERED: Ketorolac 30 MG/ML SDV IM ONE (12:26)
--- NOTE | 2021-01-26 13:12 | EDM.PDOC ---
ED HPI GENERAL MEDICAL PROBLEM - General Chief Complaint: Flank Pain Stated Complaint: side pain Time Seen by Provider: 01/26/21 12:05 Source of Information: Reports: Patient History Limitations: Reports: No Limitations - History of Present Illness INITIAL COMMENTS - FREE TEXT/NARRATIVE: Patient is a 40n yo male presents to the emergency room with flank pain. Patient here in the emergency room overnight for the same symptoms. No change in clinical status other than recurrence of pain. 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 Therefore, he came into the emergency room for pain medication. Otherwise, he denies any vomiting, fevers, difficulty urinating. See previous note for complete details. There is been no other changes in this patient's clinical history. Onset of pain this morning started around 4 AM. Reports moderate to severe symptoms. Right Flank Pain Score (Numeric/FACES): 10 - Related Data Allergies Allergy/AdvReac Type Severity Reaction Status Date / Time No Known Allergies Allergy Verified 01/26/21 12:02 Home Meds: Home Meds Hydrocodone/Acetaminophen [HYDROcodone-Acetaminophen 5-325 MG] 1 - 2 tab PO Q6H PRN #20 tab 01/26/21 [Rx] Ondansetron [Zofran ODT] 1 tab PO Q8H PRN #14 tab.dis 01/26/21 [Rx] Tamsulosin [Flomax] 1 cap PO QAM PRN #10 cap.er 01/26/21 [Rx] Past Medical History Genitourinary History: Reports: Renal Calculus - Past Surgical History Musculoskeletal Surgical History: Reports: Shoulder Surgery Social & Family History - Family History Family Medical History: No Pertinent Family History Cardiac: Reports: [facility] - Tobacco Use Tobacco Use Status *Q: Current Every Day Tobacco User Years of Tobacco use: 20 Packs/Tins Daily: 0.5 - Caffeine Use Caffeine Use: Reports: Energy Drinks, Soda - Recreational Drug Use Recreational Drug Use: No - Living Situation & Occupation Living situation: Reports: Single, Other (With a friend) Occupation: Employed ([employer]) ED ROS GENERAL - Review of Systems Review Of Systems: Comprehensive ROS is negative, except as noted in HPI. ED EXAM, RENAL/ - Physical Exam Exam: See Below Text/Narrative:: I have reviewed the triage vital signs Const: Well nourished, well developed, appears stated age Eyes: no conjunctival injection HENT: No signs of trauma or swelling, Neck supple without meningismus CV: Regular Rate Rhythm, Warm, well-perfused extremities RESP: Unlabored respiratory effort MSK: No gross deformities appreciated Skin: Warm, dry. 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 Sensation and motor function of extremities grossly intact. Psych: Appropriate mood and affect. Course - Vital Signs Last Recorded V/S: Last Vital Signs Temp 36.6 C 01/26/21 11:54 Pulse 85 01/26/21 11:54 Resp 16 01/26/21 11:54 BP 135/101 H 01/26/21 11:54 Pulse Ox 95 01/26/21 11:54 - Orders/Labs/Meds Meds: Medications Discontinued Medications Generic Name Dose Route Start Last Admin Trade Name Freq PRN Reason Stop Dose Admin Ketorolac Tromethamine 30 mg 01/26/21 12:16 Ketorolac 15 Mg/Ml Sdv IM 01/26/21 12:17 ONETIME ONE Ketorolac Tromethamine 30 mg 01/26/21 12:26 01/26/21 12:32 Ketorolac 30 Mg/Ml Sdv IM 01/26/21 12:27 30 mg ONETIME ONE Administration Oxycodone/Acetaminophen 1 tab 01/26/21 12:17 01/26/21 12:31 Acetaminophen/Oxycodone 325-5 Mg Tab PO 01/26/21 12:18 1 tab ONETIME ONE Administration Departure - Departure Time of Disposition: 13:12 Disposition: Home, Self-Care 01 Clinical Impression: Kidney stone, Ureterolithiasis - Discharge Information Instructions: Kidney Stones, [id number], Renal Colic Referrals: PCP,None [Primary Care Provider] - Forms: ED Department Discharge Additional Instructions: Take all medications as prescribed. Return to the ER for worsening symptoms or other emergent concerns. Sepsis Event Note (ED) - Evaluation Sepsis Screening Result: No Definite Risk - Focused Exam Vital Signs: Vital Signs Temp Pulse Resp BP Pulse Ox 01/26/21 11:54 36.6 C 85 16 135/101 H 95 - Assessment/Plan Assessment:: Patient is a 40-year-old male presenting to the emergency room with a complaint of flank pain. Previous diagnosis of kidney stone with unable to access appropriate analgesia. Patient given Toradol and Percocet in the emergency room with significant improvement of symptoms. No indication for repeat laboratory testing. Vital signs stable. Discharged with appropriate return precautions.
== END 2021-01-26 13:25 | disposition home or self-care (01) ==
LOC: JD.ED 11:46
DX: N20.2 Calculus of kidney with calculus of ureter (principal); Z72.0 Tobacco use; Z79.899 Other long term (current) drug therapy
CPT/HCPCS: 96372; 99283; A9270; J1885

== ENCOUNTER 2023-03-05 01:15 | Emergency (ER) | payer BC ==
[2023-03-05] MEDS ORDERED: Cefdinir 300 MG Cap PO ONE (02:30)
[2023-03-05 02:44] VITALS: BP 110/69; PULSE 80
== END 2023-03-05 02:45 | disposition home or self-care (01) ==
LOC: JD.ED 01:15
DX: L03.811 Cellulitis of head [any part, except face] (principal); F17.210 Nicotine dependence, cigarettes, uncomplicated; Z79.899 Other long term (current) drug therapy
CPT/HCPCS: 70450; 70450-26; 72125; 72125-26; 99283

== ENCOUNTER 2023-03-07 15:21 | Emergency (ER) | payer BC ==
[2023-03-07 16:08] VITALS: BP 145/99; PULSE 88
== END 2023-03-07 16:05 | disposition home or self-care (01) ==
LOC: JD.ED 15:21
DX: B02.9 Zoster without complications (principal); Z79.899 Other long term (current) drug therapy
CPT/HCPCS: 99283

== ENCOUNTER 2023-07-21 21:05 | Emergency (ER) | payer BC ==
[2023-07-21] MEDS: Acetaminophen 325 MG Tab PO ONE (21:57)
[2023-07-21] MEDS: Sodium Chloride 0.9% 1,000 ML IV ONE ×2 (22:04→23:24)
[2023-07-21 22:14] LABS: BASOPHILS ABSOLUTE AUTO 0.1 K/mm3 (0.0-0.2); BASOPHILS PERCENT AUTO 1.3 % (0.0-1.0); EOSINOPHILS ABSOLUTE AUTO 0.3 K/mm3 (0.0-0.4); EOSINOPHILS PERCENT AUTO 3.8 % (0.0-6.0); HEMATOCRIT 49.9 % (42.0-52.0); HEMOGLOBIN 16.8 gm/dl (14.0-18.0); IMMATURE GRAN ABSOLUTE AUTO 0.01 K/mm3 (0.00-0.05); IMMATURE GRAN PERCENT AUTO 0.1 % (0.0-0.4); LYMPHOCYTES ABSOLUTE AUTO 1.6 K/mm3 (1.0-4.8); LYMPHOCYTES PERCENT AUTO 23.8 % (24.0-44.0); MEAN CORPUSCULAR HEMOGLOBIN 29.5 pg (28.0-32.0); MEAN CORPUSCULAR HGB CONC 33.7 g/dl (32.0-36.0); MEAN CORPUSCULAR VOLUME 87.5 fl (83.0-99.0); MEAN PLATELET VOLUME 9.7 fl (9.4-12.4); MONOCYTES ABSOLUTE AUTO 0.6 K/mm3 (0.0-0.8); MONOCYTES PERCENT AUTO 8.3 % (0.0-8.0); NEUTROPHILS ABSOLUTE AUTO 4.3 K/mm3 (1.8-7.7); NEUTROPHILS PERCENT AUTO 62.7 % (41.0-71.0); PLATELET COUNT,PLT 246 K/mm3 (150-400); WHITE BLOOD CELL COUNT,WBC 6.88 K/mm3 (3.9-11.3)
[2023-07-21 22:38] LABS: A/G RATIO 1.1 (1-2); ALANINE AMINOTRANSFERASE,ALT 42 U/L (16-63); ALBUMIN 4.1 g/dl (3.4-5.0); ALKALINE PHOSPHATASE 79 U/L (46-116); ANION GAP 14.7 (5-15); ASPARTATE AMNIOTRANSFERASE,AST 20 U/L (15-37); BILIRUBIN TOTAL 0.6 mg/dL (0.2-1.0); BLOOD UREA NITROGEN,BUN 8 mg/dL (7-18); CALCIUM 9.1 mg/dL (8.5-10.1); CARBON DIOXIDE,CO2 26 mEq/L (21-32); CHLORIDE,CL 106 mEq/L (98-107); EST CRCL DRUG DOSING (CG) 110.74 mL/min; ESTIMATED GFR 96 mL/min (>60); GLUCOSE RANDOM 99 mg/dL (70-99); POTASSIUM,K 3.7 mEq/L (3.5-5.1); PROTEIN TOTAL,TP 7.9 g/dl (6.4-8.2); SODIUM,NA 143 mEq/L (136-145)
[2023-07-21 22:39] LABS: TROPONIN I HIGH SENSITIVITY < 4 pg/mL (<=76)
[2023-07-21 23:41] VITALS: BP 122/88; PULSE 77
== END 2023-07-21 23:28 | disposition home or self-care (01) ==
LOC: JD.ED 21:05
DX: E86.0 Dehydration (principal)
CPT/HCPCS: 36415; 71045; 80053; 84484; 85025; 93005; 96360; 99284; A9270; J7030; 93010; 99283

== ENCOUNTER 2024-03-21 04:39 | Emergency (ER) | payer BC ==
[2024-03-21] MEDS ORDERED: Sodium Chloride 0.9% 10 ML Syringe FLUSH PRN (05:06)
[2024-03-21] MEDS: Lactated Ringers 1,000 ML IV ONE (05:18)
[2024-03-21] MEDS: Ketorolac 15 MG/ML SDV IVPUSH ONE (05:18)
[2024-03-21 05:28] LABS: BASOPHILS ABSOLUTE AUTO 0.1 K/mm3 (0.0-0.2); BASOPHILS PERCENT AUTO 1.1 % (0.0-1.0); EOSINOPHILS ABSOLUTE AUTO 0.5 K/mm3 (0.0-0.4); EOSINOPHILS PERCENT AUTO 6.5 % (0.0-6.0); HEMATOCRIT 50.3 % (42.0-52.0); HEMOGLOBIN 16.8 gm/dl (14.0-18.0); IMMATURE GRAN ABSOLUTE AUTO 0.02 K/mm3 (0.00-0.05); IMMATURE GRAN PERCENT AUTO 0.2 % (0.0-0.4); LYMPHOCYTES ABSOLUTE AUTO 3.5 K/mm3 (1.0-4.8); LYMPHOCYTES PERCENT AUTO 42.6 % (24.0-44.0); MEAN CORPUSCULAR HEMOGLOBIN 29.7 pg (28.0-32.0); MEAN CORPUSCULAR HGB CONC 33.4 g/dl (32.0-36.0); MEAN PLATELET VOLUME 10.5 fl (9.4-12.4); MONOCYTES ABSOLUTE AUTO 0.8 K/mm3 (0.0-0.8); MONOCYTES PERCENT AUTO 9.3 % (0.0-8.0); NEUTROPHILS ABSOLUTE AUTO 3.3 K/mm3 (1.8-7.7); NEUTROPHILS PERCENT AUTO 40.3 % (41.0-71.0); PLATELET COUNT,PLT 244 K/mm3 (150-400); RED BLOOD CELL COUNT 5.65 M/mm3 (4.52-5.90); WHITE BLOOD CELL COUNT,WBC 8.14 K/mm3 (3.9-11.3)
[2024-03-21 05:50] LABS: A/G RATIO 1.1 (1-2); ALBUMIN 3.8 g/dl (3.4-5.0); ANION GAP 11.7 (5-15); BILIRUBIN TOTAL 0.8 mg/dL (0.2-1.0); CALCIUM 8.7 mg/dL (8.5-10.1); EST CRCL DRUG DOSING (CG) 109.6 mL/min; POTASSIUM,K 3.7 mEq/L (3.5-5.1); PROTEIN TOTAL,TP 7.3 g/dl (6.4-8.2)
[2024-03-21] MEDS: HYDROmorphone 1 MG/ML Syringe IVPUSH ONE ×2 (05:57→07:38)
[2024-03-21 06:57] LABS: APPEARANCE,URINE CLEAR (Clear); BILIRUBIN,URINE NEGATIVE (Negative); COLOR,URINE YELLOW (Yellow); GLUCOSE,URINE NEGATIVE (Negative); KETONES,URINE NEGATIVE (Negative); LEUKOCYTE ESTERASE,URINE NEGATIVE (Negative); NITRITE,URINE NEGATIVE (Negative); OCCULT BLOOD,URINE 2+ (Negative); PROTEIN,URINE NEGATIVE (Negative)
[2024-03-21 07:06] LABS: BACTERIA,URINE FEW /hpf (FEW); MUCUS,URINE MODERATE /hpf (FEW); RBC,URINE 50-75 /hpf (0-5); SQUAMOUS EPITHELIAL CELLS,UR 0-5 /hpf (0-5); WBC,URINE 0-5 /hpf (0-5)
[2024-03-21 07:42] VITALS: BP 142/93; PULSE 61
== END 2024-03-21 08:30 | disposition home or self-care (01) ==
LOC: JD.ED 04:39
DX: N13.2 Hydronephrosis with renal and ureteral calculous obstruction (principal); Z79.899 Other long term (current) drug therapy
CPT/HCPCS: 36415; 74176; 80053; 81001; 83690; 85025; 96361; 96374; 96375; 96376; 99284; J1171; J1885; J7120